=== PATIENT | female | born 1995 | race Caucasian/White ===

== ENCOUNTER 2018-05-01 14:56 | Emergency (ER) | payer OTHER ==
[~2018-05-01] VITALS: Ht 170.2 cm; Wt 91.6 kg
[~2018-05-01 14:56] MED LIST: ACETAMINOPHEN-1 EAC3; AMOXICILLIN500 M2 PO; CIPRO500 M1 PO; CIPROFLOXACIN PO; DILAUDID2 M1 PO; FLAGYL500 MG PO; FOLIC ACID1 M1 PO; IBUPROFEN800 M1 PO; MIRENA1 EACH; MOBIC15 M1 PO; NITROFURANTOIN100 M6 PO; PHENAZOPYRIDIN200 M3 PO; PROAIR HFA8.5 GM INH; PYRIDIUM100 M1 PO; VICODIN 5-3001 EACH PO; VITAFOL ULTRA1 EACH PO; ZOFRAN PO; ZOFRAN4 M1 PO; ZOFRAN4 M2 PO
[2018-05-01 16:29] LABS: ABSOLUTE BASOPHIL COUNT 0 /CUMM (0.0-0.2); ABSOLUTE EOSINOPHIL COUNT 0.1 /CUMM (0.0-0.7); ABSOLUTE GRANULOCYTE CT 6.8 /CUMM (1.4-6.5); ABSOLUTE LYMPH COUNT 1.9 /CUMM (1.2-3.4); ABSOLUTE MONOCYTE COUNT 0.5 /CUMM (0.10-0.60); BASOPHIL % 0.2 % (0.0-2.0); EOSINOPHIL % 1.2 % (0-5); GRANULOCYTE % 72.8 % (42.2-75.2); HEMATOCRIT 42.3 % (37-47); MEAN CORPUSCULAR HGB 30.4 PG (27.0-31.0); MEAN CORPUSCULAR HGB CONC 34.3 G/DL (33.0-37.0); MEAN CORPUSCULAR VOLUME 88.6 FL (81.0-99.0); MEAN PLATELET VOLUME 10.6 FL (7.4-10.4); PLATELET COUNT 177 /CUMM (130-400); RBC DISTRIBUTION WIDTH 12.9 % (11.5-14.5); RED BLOOD CELL CT 4.78 /CUMM (4.20-5.40); WHITE BLOOD CELL COUNT 9.3 /CUMM (4.8-10.8)
--- NOTE | 2018-05-01 16:29 | ULTRASOUND REPORT ---
EXAMINATION: US TRANSVAGINAL CLINICAL INFORMATION: Left pelvic pain. COMPARISON: 10/12/2016 TECHNIQUE: Sonographic imaging of the pelvis was performed using transvaginal and transabdominal transducers. FINDINGS: The anteflexed uterus measures approximately 5.5 cm long, 4 cm AP and 5.5 cm transverse. The myometrial echotexture is normal. No uterine leiomyoma. The cervix is normal; the cervical canal is 3 cm in length. The endometrium measures 0.4 cm AP. A contraceptive device is appropriately positioned within the endometrial cavity. There is no fluid within the endometrium. The right ovary has normal size, contour and echotexture. Normal sized follicles are seen. The right ovary measures 2.9 x 1.8 x 2.8 cm, volume of 7.6 mL. Color Doppler images with spectral waveforms show presence of normal arterial and venous flow within the right ovary. The left ovary measures 6 x 4.3 x 5.3 cm. There is a 5.6 x 3.9 x 5.2 cm simple cyst of the ovary. Color Doppler images show presence of normal arterial and venous flow within the ovary. No free fluid in the pelvic cul-de-sac. IMPRESSION: 1. A simple cyst of the left ovary measures up to 5.6 cm. Given the cyst size of > 5 cm cm, sonographic follow-up is recommended to assess for resolution. 2. No evidence of ovarian torsion. 3. A contraceptive device is well-positioned within the endometrium.
[2018-05-01] MEDS ORDERED: NORCO 5-325 TA1 EACH PO (16:54)
--- NOTE | 2018-05-01 16:55 | ED GI/GU/ABDOMINAL COMPLAINT ---
History of Present Illness General Chief Complaint: Abdominal Pain/Flank Pain Stated Complaint: R RIB PAIN Source: patient Exam Limitations: no limitations Vital Signs & Intake/Output Vital Signs & Intake/Output ED Intake and Output 05/02 0000 05/01 1200 Intake Total Output Total Balance Patient 202 lb Weight Allergies Coded Allergies: onion (MIGRAINES 06/26/16) strawberry (LIP SWELL 06/26/16) Reconcile Medications Albuterol Sulfate (Proair Hfa) 90 MCG HFA.AER.AD 2 PUF INH Q4-6 PRN PRN WHEEZING Folic Acid 1 MG TABLET 1 TAB PO DAILY SUPPLEMENT (Reported) Hydrocodone/Acetaminophen ([place] 5-325 Tablet) 5 MG-325 MG TABLET 1-2 TAB PO Q4-6 PRN PRN SEVERE PAIN Pnv#67/Iron Ps/FA Cmb#1/Dha (Vitafol Ultra Softgel) 29 MG IRON-1 MG-200 MG CAPSULE 1 CAP PO DAILY (Reported) Triage Note: PT COMPLAINS OF L SIDE FLANK PAIN X 1 MONTH AND R SIDE X 1 WEEK. PT HAS HISTORY OF OVARIAN CYST AND STATES THAT SHE CAME TODAY DUE TO PAIN IS 910 Triage Nurses Notes Reviewed? yes LMP (ages 10-50): unknown ? n Is pt currently ? No Onset: Gradual Duration: week(s): (4), constant, continues in ED, getting worse Timing: recent history Quality/Severity: stabbing Severity Numbers: 9 Location: left lower quadrant Radiation: no radiation Activities at Onset: none Prior Abdominal Problems: similar symptoms Past Sexual History: Unobtainable at this time No Modifying Factors: none Modifying Factors: Worsens With: movement, palpation. HPI: 22-year-old female history of ovarian cysts presents for evaluation of left- sided pelvic and abdominal pain. Patient reports she has had this pain for the past month but that it got more severe yesterday and today. The pain is located in the left pelvic area and does not radiate described as sharp and stabbing. She reports a history of similar symptoms and has a known ovarian cyst in that area. She denies vaginal discharge or urinary symptoms vaginal bleeding back pain hematuria fever. She does report some nausea but no vomiting. No chest pain or shortness of breath. She does see an JOURNEY[employer] AND DIE MAKER. (Los VREDUZCO,Geovany) Past History Travel History Traveled to [place] past 21 day No Medical History Any Pertinent Medical History? see below for history Neurological: NONE EENT: NONE Cardiovascular: NONE Respiratory: NONE Gastrointestinal: NONE Hepatic: NONE Renal: UTI Musculoskeletal: NONE Psychiatric: NONE Endocrine: NONE Blood Disorders: NONE Cancer(s): NONE VICTIM ADVOCATE/Reproductive: OVARIAN TORSION OVARIAN CYSTS Surgical History Surgical History: LAPAROSCOPIC OVARIAN DETORSION Psychosocial History What is your primary language Venezuelan Tobacco Use: Current Daily Use Daily Tobacco Use Amount/Type: => 5 Cigarettes daily ETOH Use: occasional use Illicit Drug Use: denies illicit drug use Family History Hx Contributory? No (Geovany Alcantara) Review of Systems Review of Systems Constitutional: Reports: no symptoms. EENTM: Reports: no symptoms. Respiratory: Reports: no symptoms. Cardiovascular: Reports: no symptoms. GI: Reports: see HPI, abdominal pain, nausea. Genitourinary: Reports: no symptoms. Musculoskeletal: Reports: no symptoms. Skin: Reports: no symptoms. Neurological/Psychological: Reports: no symptoms. Hematologic/Endocrine: Reports: no symptoms. Immunologic/Allergic: Reports: no symptoms. All Other Systems: Reviewed and Negative (Geovany Alacntara) Physical Exam Physical Exam General Appearance: well developed/nourished, no apparent distress, alert, awake Head: atraumatic, normal appearance Eyes: Bilateral: normal appearance, EOMI. Ears, Nose, Throat, Mouth: hearing grossly normal, moist mucous membrane Neck: normal inspection, supple, full range of motion Respiratory: normal breath sounds, chest non-tender, no respiratory distress, lungs clear Cardiovascular: regular rate/rhythm Gastrointestinal: normal bowel sounds, soft, no organomegaly, tenderness (llq, left pelvic ) Back: normal inspection, normal range of motion, no vertebral tenderness, no cvat Extremities: normal range of motion Neurologic/Psych: no motor/sensory deficits, awake, alert, oriented x 3, normal gait, normal mood/affect Skin: intact, normal color, warm/dry Core Measures ACS in differential dx? No Sepsis Present: No Sepsis Focused Exam Completed? No (Geovany Alcantara) Progress Differential Diagnosis: diverticulitis, ectopic , endometritis, gastritis, inflamm bowel dis, intrauterine , kidney stone, ovarian cyst , ovarian torsion, PID/cervicitis, threatened AB, UTI/pyelo Plan of Care: Orders Procedure Date/time Status URINE 05/01 1520 Complete URINALYSIS 05/01 1520 Complete LIPASE 05/01 1520 Complete COMPREHENSIVE METABOLIC PANEL 05/01 1520 Complete CBC WITHOUT DIFFERENTIAL 05/01 1520 Complete Laboratory Tests 05/01/18 1620: Anion Gap 11, Estimated GFR > 60, BUN/Creatinine Ratio 17.5, Glucose 99, Calcium 9.6, Total Bilirubin 0.4, AST 18, ALT 29, Alkaline Phosphatase 73, Total Protein 7.3, Albumin 4.5, Globulin 2.8, Albumin/Globulin Ratio 1.6, Lipase 61, CBC w Diff NO MAN DIFF REQ, RBC 4.78, MCV 88.6, MCH 30.4, MCHC 34.3, RDW 12.9, MPV 10.6 H, Gran % 72.8, Lymphocytes % 20.9, Monocytes % 4.9, Eosinophils % 1.2, Basophils % 0.2, Absolute Granulocytes 6.8 H, Absolute Lymphocytes 1.9, Absolute Monocytes 0.5, Absolute Eosinophils 0.1, Absolute Basophils 0, Urine Color YEL, Urine Clarity CLEAR, Urine pH 7.0, Ur Specific [place] 1.020, Urine Protein NEG, Urine Ketones NEG, Urine Nitrite NEG, Urine Bilirubin NEG, Urine Urobilinogen 0.2, Ur Leukocyte Esterase NEG, Ur Microscopic SEDIMENT EXAMINED, Urine RBC 1-3, Urine WBC RARE, Ur Epithelial Cells FEW, Urine Bacteria RARE H, Urine Hemoglobin SMALL H, Urine Glucose NEG, Urine Test NEGATIVE Patient is here with left-sided pelvic and abdominal pain. She reports a history of ovarian cyst that feels similar. This pain has been present for a month recently getting worse. Patient was medicated with Toradol. Labs ultrasound ordered. Lab work is not showing any acute findings. Transvaginal ultrasound does show a large left-sided ovarian cyst without evidence of torsion. Reviewed results with patient. She is feeling better she is able tolerate fluids. Advised about the importance of close follow-up with J[employer]KER and also advised the need for repeat ultrasound to confirm resolution. Discussed return precautions in detail. Patient agrees with plan Diagnostic Imaging: Viewed by Me: Ultrasound. Discussed w/RAD: Ultrasound. Radiology Impression: PATIENT: MAREN AGUILAR PRESENT AGE: 22 PATIENT ACCOUNT NO: [id number] : 94 LOCATION: [facility] ORDERING PHYSICIAN: Geovany VERDUZCO SERVICE DATE: 05/01/18 EXAM TYPE: US - US- TRANSVAGINAL EXAMINATION: US TRANSVAGINAL CLINICAL INFORMATION: Left pelvic pain. COMPARISON: 10/12/2016 TECHNIQUE: Sonographic imaging of the pelvis was performed using transvaginal and transabdominal transducers. FINDINGS: The anteflexed uterus measures approximately 5.5 cm long, 4 cm AP and 5.5 cm transverse. The myometrial echotexture is normal. No uterine leiomyoma. The cervix is normal; the cervical canal is 3 cm in length. The endometrium measures 0.4 cm AP. A contraceptive device is appropriately positioned within the endometrial cavity. There is no fluid within the endometrium. The right ovary has normal size, contour and echotexture. Normal sized follicles are seen. The right ovary measures 2.9 x 1.8 x 2.8 cm, volume of 7.6 mL. Color Doppler images with spectral waveforms show presence of normal arterial and venous flow within the right ovary. The left ovary measures 6 x 4.3 x 5.3 cm. There is a 5.6 x 3.9 x 5.2 cm simple cyst of the ovary. Color Doppler images show presence of normal arterial and venous flow within the ovary. No free fluid in the pelvic cul-de- sac. IMPRESSION: 1. A simple cyst of the left ovary measures up to 5.6 cm. Given the cyst size of > 5 cm cm, sonographic follow-up is recommended to assess for resolution. 2. No evidence of ovarian torsion. 3. A contraceptive device is well -positioned within the endometrium. DICTATED BY: Bernabe Mg MD DATE/TIME DICTATED:05/01/181619 CLINICAL NUTRITION MANAGER:SARAH DATE/TIME TRANSCRIBED:1619 CONFIDENTIAL, DO NOT COPY WITHOUT APPROPRIATE AUTHORIZATION. < Electronically signed in Other Vendor System> Initial ED EKG: none (Geovany Alcantara) Departure Departure Disposition: HOME OR SELF CARE Condition: Stable Clinical Impression Primary Impression: Ovarian cyst Qualifiers: Laterality: left Qualified Code: N83.202 - Unspecified ovarian cyst , left side Referrals: Delroy RUBIO,Alexis Covington (PCP/Family) Additional Instructions: FOLLOW UP WITH OBGYN. CONTINUE IBUPROFEN FOR PAIN. NORCO FOR SEVERE PAIN ONLY. MAY CASUE DROWINSESS. RETURN WITH ANY CONCERNS. Departure Forms: Customer Survey General Discharge Information Prescriptions: Current Visit Scripts Hydrocodone/Acetaminophen ([place] 5-325 Tablet) 1-2 TAB PO Q4-6 PRN PRN SEVERE PAIN #10 TAB (Geovany Alcantara) PA/BIOPHYSICS PROFESSOR Co-Sign Statement Statement: ED Attending supervision documentation- I saw and evaluated the patient. I have also reviewed all the pertinent lab results and diagnostic results. I agree with the findings and the plan of care as documented in the PA's/BIOPHYSICS PROFESSOR's documentation. x I have reviewed the ED Record and agree with the PA's/BIOPHYSICS PROFESSOR's documentation. [] Additions or exceptions (if any) to the PAs/BIOPHYSICS PROFESSOR's note and plan are summarized below: [] (Tristin RUBIO,Dereje)
[2018-05-01 17:07] VITALS: BP 125/76
== END 2018-05-01 17:09 ==
LOC: ERH 14:56
PROVIDERS: Physician Assistant Medical
DX: N83.202 Unspecified ovarian cyst, left side (principal)
CPT/HCPCS: 81001; 81025

== ENCOUNTER 2018-05-08 20:51 | Emergency (ER) | payer OTHER ==
[~2018-05-08] VITALS: Ht 170.2 cm; Wt 91.6 kg
[~2018-05-08 20:51] MED LIST changes: +NORCO 5-325 TA1 EACH PO
--- NOTE | 2018-05-08 22:39 | ED GI/GU/ABDOMINAL COMPLAINT ---
History of Present Illness General Chief Complaint: Female Urogenital Problems Stated Complaint: "OVARIAN CYST, PAIN" Source: patient Exam Limitations: no limitations Vital Signs & Intake/Output Vital Signs & Intake/Output Vital Signs Date Time Temp Pulse Resp B/P B/P Pulse O2 O2 Flow FiO2 Mean Ox Delivery Rate 05/09 0459 97.6 52 18 109/60 99 Room Air 05/09 0317 56 18 128/80 99 Room Air 05/09 0024 56 18 142/90 99 Room Air 05/087 97.5 64 20 131/78 97 Room Air ED Intake and Output 05/09 0000 05/08 1200 Intake Total 0 Output Total Balance 0 Intake, Oral 0 Patient 202 lb Weight Weight Reported by Patient Measurement Method Allergies Coded Allergies: onion (MIGRAINES 06/26/16) strawberry (LIP SWELL 06/26/16) Triage Note: PT HERE WITH C/O LEFT SIDE OVARIAN PAIN. PT REPORTS HAVING A CYST ON LEFT OVARY. PER PT WAS TOLD TO COME IN IF PAIN IS WORSE. PT REPORTS TAKING TYLEONL WITH CODIEN, MOTRIN, HEATING PADS AND WARM SHOWERS WITH NO RELIEF. Triage Nurses Notes Reviewed? yes ? N Is pt currently ? No Onset: Gradual Duration: getting worse Timing: recent history Quality/Severity: sharpness, severe, stabbing Severity Numbers: 7 Radiation: no radiation HPI: Patient is a 22-year-old female who presents emergent with concerns of worsening left lower quadrant pain where her old records and patient state that approximately one week ago she was diagnosed with a left 5 cm ovarian cyst with patient initially was given Vicodin home for her DIAMOND CLEAVER advised patient to only take Tylenol with codeine were patient returns emergency room stating that the Tylenol with Codeine does not improve her pain. Patient has mild nausea however can tolerate by mouth denies any fever chills back pain dysuria hematuria vaginal bleeding or discharge. (Nani VERDUZCO,León) Reconcile Medications Albuterol Sulfate (Proair Hfa) 90 MCG HFA.AER.AD 2 PUF INH Q4-6 PRN PRN WHEEZING Folic Acid 1 MG TABLET 1 TAB PO DAILY SUPPLEMENT (Reported) Hydrocodone/Acetaminophen (Spearman 5-325 Tablet) 5 MG-325 MG TABLET 1-2 TAB PO Q4-6 PRN PRN SEVERE PAIN Ketorolac Tromethamine 10 MG TABLET 1 TAB PO TID PRN PAIN RECEIVED IM IN ER Ondansetron (Zofran Odt) 4 MG TAB.RAPDIS 1 TAB SL TID PRN NAUSEA Oxycodone HCl/Acetaminophen (Percocet 5-325 MG Tablet) 5 MG-325 MG TABLET 1 TAB PO 4XDP PRN PAIN EIGHT...[id number] Pnv#67/Iron Ps/FA Cmb#1/Dha (Vitafol Ultra Softgel) 29 MG IRON-1 MG-200 MG CAPSULE 1 CAP PO DAILY (Reported) (Becky RUBIO,Noble Covington) Past History Travel History Traveled to [place] past 21 day No Medical History Any Pertinent Medical History? see below for history Neurological: NONE EENT: NONE Cardiovascular: NONE Respiratory: NONE Gastrointestinal: NONE Hepatic: NONE Renal: UTI Musculoskeletal: NONE Psychiatric: NONE Endocrine: NONE Blood Disorders: NONE Cancer(s): NONE IUSS ACOUSTIC ANALYST/Reproductive: OVARIAN TORSION OVARIAN CYSTS Surgical History Surgical History: appendectomy, LAPAROSCOPIC OVARIAN DETORSION Psychosocial History What is your primary language Divehi Tobacco Use: Current Daily Use Daily Tobacco Use Amount/Type: => 5 Cigarettes daily ETOH Use: occasional use Illicit Drug Use: denies illicit drug use Family History Hx Contributory? No (León Westfall) Review of Systems Review of Systems Constitutional: Reports: no symptoms. EENTM: Reports: no symptoms. Respiratory: Reports: no symptoms. Cardiovascular: Reports: no symptoms. GI: Reports: see HPI. Genitourinary: Reports: no symptoms. Musculoskeletal: Reports: no symptoms. Skin: Reports: no symptoms. Neurological/Psychological: Reports: no symptoms. Hematologic/Endocrine: Reports: no symptoms. Immunologic/Allergic: Reports: no symptoms. All Other Systems: Reviewed and Negative (León Westfall) Physical Exam Physical Exam General Appearance: no apparent distress, alert, comfortable Head: atraumatic Eyes: Bilateral: normal appearance. Ears, Nose, Throat, Mouth: moist mucous membrane Neck: normal inspection Respiratory: normal breath sounds, no respiratory distress Gastrointestinal: normal bowel sounds, soft, LLQ PAIN NO REBOUND TENDERNESS NO PERITONEAL PAIN Extremities: normal range of motion Neurologic/Psych: no motor/sensory deficits, awake Skin: intact, normal color, warm/dry Core Measures ACS in differential dx? No Sepsis Present: No Sepsis Focused Exam Completed? No (León Westfall) Progress Differential Diagnosis: AAA, AMI, biliary colic, bowel obstruction, colon cancer , cholecystitis, diverticulitis, ectopic , endometritis, esophageal varices, gastritis, hepatitis, hernia, hemorrhoids, ischemic bowel, inflamm bowel dis, intrauterine , kidney stone, ovarian cyst, ovarian torsion, pancreatitis, PID/cervicitis, peptic ulcer, PUD/GERD, perforated viscous, SBO, threatened AB, UTI/pyelo Plan of Care: Orders Procedure Date/time Status Add-on Test (ER Only) 05/08 2325 Active HUMAN BETA HCG TITRE 05/08 2242 Complete URINE 05/08 2153 Complete URINALYSIS 05/08 2153 Complete LIPASE 05/08 2153 Complete COMPREHENSIVE METABOLIC PANEL 05/08 2153 Complete CBC WITHOUT DIFFERENTIAL 05/08 2153 Complete Laboratory Tests 05/09/18 0100: Urine Color YEL, Urine Clarity CLEAR, Urine pH 6.0, Ur Specific [place] >= 1.030 , Urine Protein NEG, Urine Ketones NEG, Urine Nitrite NEG, Urine Bilirubin NEG, Urine Urobilinogen 0.2, Ur Leukocyte Esterase NEG, Ur Microscopic EXAM NOT REQUIRED, Urine Hemoglobin NEG, Urine Glucose NEG, Urine Test NEGATIVE 05/08/182241: Anion Gap 12, Estimated GFR > 60, BUN/Creatinine Ratio 24.3, Glucose 96, Calcium 9.8, Total Bilirubin 0.3, AST 16, ALT 28, Alkaline Phosphatase 65, Total Protein 7.1, Albumin 4.4, Globulin 2.7, Albumin/Globulin Ratio 1.6, Lipase 43, Beta HCG, Quant < 2.4, CBC w Diff NO MAN DIFF REQ, RBC 4.44, MCV 87.6, MCH 30.6, MCHC 34.9 , RDW 12.9, MPV 10.9 H, Gran % 58.1, Lymphocytes % 32.1, Monocytes % 6.8, Eosinophils % 2.1, Basophils % 0.9, Absolute Granulocytes 5.2, Absolute Lymphocytes 2.9, Absolute Monocytes 0.6, Absolute Eosinophils 0.2, Absolute Basophils 0.1 Patient upon initial presentation is resting comfortably at bedside no apparent distress afebrile 0021 patient was reevaluated laughing with friends lying in the bed NO distress had improvement of pain CT scan currently pending discussed handoff to Dr. Pena Initial ED EKG: none Hand-Off Endorsed To: Becky RUBIO,Noble Covington Endorsed Time: 45 Pending: CT (Nani VERDUZCO,[place]) Diagnostic Imaging: Viewed by Me: CT Scan. Discussed w/RAD: CT Scan. Radiology Impression: PATIENT: MAREN AGUILAR PRESENT AGE: 22 PATIENT ACCOUNT NO: [id number] : 94 LOCATION: [facility] ORDERING PHYSICIAN: León VERDUZCO SERVICE DATE: 05/08/18 EXAM TYPE: CAT - CT ABD & PELVIS W IV CONTRAST EXAMINATION: CT ABDOMEN AND PELVIS WITH CONTRAST CLINICAL INFORMATION: Severe left lower quadrant pain COMPARISON: Pelvic ultrasound 05/01/2018 TECHNIQUE: Multidetector volumetric imaging was performed of the abdomen and pelvis following IV administration of 95 mL of Optiray 320 intravenous contrast. Sagittal and coronal reformatted images were obtained on the technologist's workstation. DLP: 543.01 mGy-cm FINDINGS: LUNG BASES: The visualized lung bases are unremarkable. LIVER, GALLBLADDER, AND BILIARY TREE: The liver is normal in size, shape, and attenuation. No focal hepatic lesion or biliary ductal dilatation is present. The gallbladder is unremarkable with no evidence of radiopaque gallstones, gallbladder wall thickening, or obvious pericholecystic inflammatory changes. PANCREAS: Unremarkable. SPLEEN: Unremarkable. ADRENAL GLANDS: Unremarkable. KIDNEYS AND URETERS: The kidneys are normal in size, shape, and attenuation. No hydronephrosis, hydroureter, or calculi seen. No perinephric stranding. BLADDER: Unremarkable. GASTROINTESTINAL TRACT: The small and large bowel are unremarkable. Patient appears status post appendectomy. No free fluid or free air is seen. ABDOMINAL WALL: No significant hernia is appreciated. LYMPH NODES: Normal. VASCULAR: Unremarkable. PELVIC VISCERA: An IUD is present in the uterus. There is a mildly hypoattenuating left adnexal lesion measuring approximately 5.3 x 4.5 x 4.5 cm, corresponding to the cyst seen on recent pelvic ultrasound 05/01/2018. OSSEOUS STRUCTURES: Unremarkable. IMPRESSION: Hypodense left adnexal lesion measuring 5.3 x 4.5 x 4.5 cm, in keeping with ovarian cyst seen on pelvic ultrasound from 05/01/2018. As noted at that time, sonographic follow-up is recommended to assess for resolution. No additional acute findings identified. DICTATED BY: Shaheed Barnard MD DATE/TIME DICTATED:05/09/18335 CLINICAL BIOCHEMIST:SARAH DATE/TIME TRANSCRIBED:05/09/18335 CONFIDENTIAL, DO NOT COPY WITHOUT APPROPRIATE AUTHORIZATION. <Electronically signed in Other Vendor System> SIGNED BY: Shaheed Barnard MD 05/09/18 0350, PATIENT: MAREN AGUILAR PRESENT AGE: 22 PATIENT ACCOUNT NO: [id number] : 94 LOCATION: [facility] ORDERING PHYSICIAN: Noble Pena MD SERVICE DATE: 05/09/18 EXAM TYPE: US - US-TRANSVAGINAL EXAMINATION: US TRANSVAGINAL CLINICAL INFORMATION: Left lower quadrant pain, history of ovarian torsion COMPARISON: TECHNIQUE: Sonographic evaluation of the pelvis was performed transabdominally and transvaginally. Color Doppler and spectral analysis was utilized. FINDINGS: The uterus measures 8.5 cm in length and 4.1 x 5.9 cm in AP and transverse dimensions. The endometrial stripe measures 0.2 cm in thickness. An IUD is present along the endometrium. The cervix measures 3.3 cm in length. The right ovary measures 2.5 x 2.9 x 2.3 cm and has a normal appearance. The left ovary measures 4.9 x 4.3 x 5.7 cm and contains a cyst measuring 4.6 x 3.9 x 5 x 1 cm, similar to prior. Doppler evaluation demonstrates flow in the bilateral ovaries. Trace free fluid is noted. IMPRESSION: No findings to suggest active ovarian torsion. Redemonstrated left ovarian cyst measuring 4.6 x 3.9 x 5.1 cm; as previously noted, sonographic follow-up is recommended to assess for resolution. Trace nonspecific pelvic free fluid. DICTATED BY: Shaheed Barnard MD DATE/TIME DICTATED:05/09/18442 CLINICAL BIOCHEMIST:ADHIKARI DATE/TIME TRANSCRIBED:05/09/18442 CONFIDENTIAL, DO NOT COPY WITHOUT APPROPRIATE AUTHORIZATION. <Electronically signed in Other Vendor System> SIGNED BY: Shaheed Barnard MD 05/09/18 0451 (Becky RUBIO,Noble Covington) Departure Departure Disposition: HOME OR SELF CARE Condition: Stable Referrals: Delroy RUBIO,Alexis Covington (PCP/Family) Additional Instructions: As discussed tomorrow FOLLOW UP WITH YOUR DIAMOND CLEAVER in the prescription Toradol for pain and continue previous prescribed pain medications. If symptoms worsen return to emergency room prescriptions waiting at [facility] Departure Forms: Customer Survey General Discharge Information (Nani VERDUZCO,[place]) Departure Clinical Impression Primary Impression: Ovarian cyst Secondary Impressions: Abdominal pain Prescriptions: Current Visit Scripts Oxycodone HCl/Acetaminophen (Percocet 5-325 MG Tablet) 1 TAB PO 4XDP PRN PAIN #8 TAB EIGHT...[id number] Ketorolac Tromethamine 1 TAB PO TID PRN PAIN #12 TAB RECEIVED IM IN ER Ondansetron (Zofran Odt) 1 TAB SL TID PRN NAUSEA #10 TAB Comments 05/09/18, 3:20am... pt with left lower quadrant pain... h/o ovarian torsion... pt merits transvag u/s to assess... ct scan results pending. 05/09/18, 5:14am... pt feeling better... u/s negative for torsion... cysts noted... pt will follow up with sample checker. close follow up advised. supportive meds sent to her pharmacy PA/ELECTRON GUN INSPECTOR Co-Sign Statement Statement: ED Attending supervision documentation- [x] I saw and evaluated the patient. I have also reviewed all the pertinent lab results and diagnostic results. I agree with the findings and the plan of care as documented in the PA's/ELECTRON GUN INSPECTOR's documentation. [] I have reviewed the ED Record and agree with the PA's/ELECTRON GUN INSPECTOR's documentation. [] Additions or exceptions (if any) to the PAs/ELECTRON GUN INSPECTOR's note and plan are summarized below: [] (Becky RUBIO,Noble Covington)
[2018-05-08 22:51] LABS: ABSOLUTE BASOPHIL COUNT 0.1 /CUMM (0.0-0.2); ABSOLUTE EOSINOPHIL COUNT 0.2 /CUMM (0.0-0.7); ABSOLUTE GRANULOCYTE CT 5.2 /CUMM (1.4-6.5); ABSOLUTE LYMPH COUNT 2.9 /CUMM (1.2-3.4); ABSOLUTE MONOCYTE COUNT 0.6 /CUMM (0.10-0.60); BASOPHIL % 0.9 % (0.0-2.0); EOSINOPHIL % 2.1 % (0-5); GRANULOCYTE % 58.1 % (42.2-75.2); HEMATOCRIT 38.9 % (37-47); MEAN CORPUSCULAR HGB 30.6 PG (27.0-31.0); MEAN CORPUSCULAR HGB CONC 34.9 G/DL (33.0-37.0); MEAN CORPUSCULAR VOLUME 87.6 FL (81.0-99.0); MEAN PLATELET VOLUME 10.9 FL (7.4-10.4); PLATELET COUNT 199 /CUMM (130-400); RBC DISTRIBUTION WIDTH 12.9 % (11.5-14.5); RED BLOOD CELL CT 4.44 /CUMM (4.20-5.40)
[2018-05-09] MEDS ORDERED: KETOROLAC TROME10 M1 PO ×2 (00:45→05:13)
--- NOTE | 2018-05-09 03:50 | CT SCAN REPORT ---
EXAMINATION: CT ABDOMEN AND PELVIS WITH CONTRAST CLINICAL INFORMATION: Severe left lower quadrant pain COMPARISON: Pelvic ultrasound 05/01/2018 TECHNIQUE: Multidetector volumetric imaging was performed of the abdomen and pelvis following IV administration of 95 mL of Optiray 320 intravenous contrast. Sagittal and coronal reformatted images were obtained on the technologist's workstation. DLP: 543.01 mGy-cm FINDINGS: LUNG BASES: The visualized lung bases are unremarkable. LIVER, GALLBLADDER, AND BILIARY TREE: The liver is normal in size, shape, and attenuation. No focal hepatic lesion or biliary ductal dilatation is present. The gallbladder is unremarkable with no evidence of radiopaque gallstones, gallbladder wall thickening, or obvious pericholecystic inflammatory changes. PANCREAS: Unremarkable. SPLEEN: Unremarkable. ADRENAL GLANDS: Unremarkable. KIDNEYS AND URETERS: The kidneys are normal in size, shape, and attenuation. No hydronephrosis, hydroureter, or calculi seen. No perinephric stranding. BLADDER: Unremarkable. GASTROINTESTINAL TRACT: The small and large bowel are unremarkable. Patient appears status post appendectomy. No free fluid or free air is seen. ABDOMINAL WALL: No significant hernia is appreciated. LYMPH NODES: Normal. VASCULAR: Unremarkable. PELVIC VISCERA: An IUD is present in the uterus. There is a mildly hypoattenuating left adnexal lesion measuring approximately 5.3 x 4.5 x 4.5 cm, corresponding to the cyst seen on recent pelvic ultrasound 05/01/2018. OSSEOUS STRUCTURES: Unremarkable. IMPRESSION: Hypodense left adnexal lesion measuring 5.3 x 4.5 x 4.5 cm, in keeping with ovarian cyst seen on pelvic ultrasound from 05/01/2018. As noted at that time, sonographic follow-up is recommended to assess for resolution. No additional acute findings identified.
--- NOTE | 2018-05-09 04:51 | ULTRASOUND REPORT ---
EXAMINATION: US TRANSVAGINAL CLINICAL INFORMATION: Left lower quadrant pain, history of ovarian torsion COMPARISON: 05/01/2018 TECHNIQUE: Sonographic evaluation of the pelvis was performed transabdominally and transvaginally. Color Doppler and spectral analysis was utilized. FINDINGS: The uterus measures 8.5 cm in length and 4.1 x 5.9 cm in AP and transverse dimensions. The endometrial stripe measures 0.2 cm in thickness. An IUD is present along the endometrium. The cervix measures 3.3 cm in length. The right ovary measures 2.5 x 2.9 x 2.3 cm and has a normal appearance. The left ovary measures 4.9 x 4.3 x 5.7 cm and contains a cyst measuring 4.6 x 3.9 x 5 x 1 cm, similar to prior. Doppler evaluation demonstrates flow in the bilateral ovaries. Trace free fluid is noted. IMPRESSION: No findings to suggest active ovarian torsion. Redemonstrated left ovarian cyst measuring 4.6 x 3.9 x 5.1 cm; as previously noted, sonographic follow-up is recommended to assess for resolution. Trace nonspecific pelvic free fluid.
[2018-05-09 04:59] VITALS: BP 109/60
[2018-05-09] MEDS ORDERED: ZOFRAN ODT4 M1 SL (05:13)
[2018-05-09] MEDS ORDERED: PERCOCET 5-3251 EACH PO (05:13)
== END 2018-05-09 05:34 ==
LOC: ERH 20:51
PROVIDERS: Physician Assistant Medical
DX: N83.202 Unspecified ovarian cyst, left side (principal)
CPT/HCPCS: 74177; 81003; 81025; 96374; 96375; J1885